=== PATIENT | male | born 1965 | race Caucasian/White ===

== ENCOUNTER → 2016-11-18 | Outpatient (CLI) | payer MEDICARE ==
--- NOTE | 2016-11-18 13:39 | XR ---
EXAMINATION TYPE: XR chest 2V DATE OF EXAM: 11/18/2016 1:31 PM COMPARISON: NONE HISTORY: Shortness of breath TECHNIQUE: Frontal and lateral views of the chest are obtained. FINDINGS: Scattered senescent parenchymal changes noted. Hyperinflation compatible with COPD. No evidence for infiltrate. No evidence for atelectasis. Heart size is stable. Mediastinal structures are stable and grossly unremarkable. No evidence for hilar prominence. Degenerative changes dorsal spine. IMPRESSION: 1. No evidence for acute pulmonary disease.
== END | disposition home or self-care (01) ==
LOC: RADXRMAIN 13:20
PROVIDERS: ATTEND Family Medicine
DX: R06.2 Wheezing (principal)
CPT/HCPCS: 71020

== ENCOUNTER → 2017-01-16 | Outpatient (CLI) | payer MEDICARE ==
[2017-01-16 14:23] LABS: Anion Gap 14 mmol/L; Blood Urea Nitrogen 14 mg/dL (9-20); CH 31.6; CHCM 34.5; Carbon Dioxide 25 mmol/L (22-30); Chloride 103 mmol/L (98-107); HCT 49.1 % (39.0-53.0); HDW 2.67; HGB 16.5 gm/dL (13.0-17.5); MCH 30.9 pg (25.0-35.0); MCHC 33.6 g/dL (31.0-37.0); MCV 92.1 fL (80.0-100.0); Mean Platelet Volume 7.6; Non-African American GFR(MDRD) >60 (>60 ml/min/1.73 sqM); Potassium 4.3 mmol/L (3.5-5.1); RBC 5.33 m/uL (4.30-5.90); RDW 12.6 % (11.5-15.5); Sodium 142 mmol/L (137-145); WBC 6.7 k/uL (3.8-10.6)
== END | disposition home or self-care (01) ==
LOC: LABWHC1 13:46
PROVIDERS: ATTEND Internal Medicine Interventional Cardiology
DX: Z01.812 Encounter for preprocedural laboratory examination (principal); R07.9 Chest pain, unspecified
CPT/HCPCS: 80051; 82565; 84520; 85027

== ENCOUNTER 2017-01-20 06:35 | Day surgery (SDC) | payer MEDICARE ==
[2017-01-17 14:26] VITALS: BMI 30.8
[2017-01-20] MEDS ORDERED: ALPRAZolam 0.5 MG TAB PO PRN (06:53)
[2017-01-20] MEDS ORDERED: SODIUM CHLORIDE 0.9% 1,000 ML in EMPTY BAG 1 BAG IV ONE (06:53)
[2017-01-20] MEDS ORDERED: ALPRAZolam 0.25 MG TAB PO PRN (06:53)
[2017-01-20] MEDS ORDERED: NITROGLYCERIN SL TABS 0.4 MG TAB SUBLINGUAL PRN (06:53)
[2017-01-20] MEDS ORDERED: ASPIRIN 325 MG TAB PO STA (06:54)
[2017-01-20] MEDS ORDERED: ATORVASTATIN 80 MG TAB PO STA (06:54)
[2017-01-20 07:18] VITALS: PULSE 75; TEMP 97.9
[2017-01-20] MEDS ORDERED: LIDOCAINE 2% INJ 20 MG/ML (20 ML MDV) ONE (07:28)
[2017-01-20] MEDS ORDERED: VERAPAMIL 2.5 MG/ML 2 ML AMP ONE (07:28)
[2017-01-20] MEDS ORDERED: SODIUM CHLORIDE 0.9% (PF) 10 ML VIAL ONE (07:28)
[2017-01-20] MEDS ORDERED: SODIUM CHLORIDE 0.9% 1,000 ML IV ONE (07:30)
[2017-01-20] MEDS ORDERED: HEPARIN SODIUM 1,000 UNIT/ML VIAL ONE (07:48)
[2017-01-20] MEDS ORDERED: MIDAZOLAM 2 MG/2 ML VIAL ONE (07:49)
[2017-01-20] MEDS ORDERED: MIDAZOLAM 2 MG/2 ML VIAL IVP ONE (07:50)
[2017-01-20] MEDS ORDERED: LIDOCAINE 2% INJ 20 MG/ML SQ ONE (07:52)
[2017-01-20] MEDS ORDERED: VERAPAMIL SYRINGE (5 MG/10 ML) INTRAARTER ONE ×2 (07:55→08:06)
[2017-01-20] MEDS ORDERED: fentaNYL (PF) 50 MCG/ML 2 ML AMP ONE (07:55)
[2017-01-20] MEDS ORDERED: fentaNYL (PF) 50 MCG/ML 2 ML AMP IV ONE (07:58)
[2017-01-20] MEDS ORDERED: HEPARIN SODIUM 1,000 UNIT/ML VIAL IV ONE (07:58)
[2017-01-20] MEDS ORDERED: IOHEXOL 350 MG/ML 100 ML BOTTLE INJ ONE (08:07)
[2017-01-20] MEDS ORDERED: RX INFO: IV CONTRAST WAS GIVEN 1 EACH MISC MISCELLANE PRN (08:11)
[2017-01-20] MEDS ORDERED: SODIUM CHLORIDE 0.9% 1,000 ML IV SCH (08:15)
[2017-01-20 12:44] VITALS: RESP 18
[2017-01-20 13:15] VITALS: BP 120/63
--- NOTE | 2017-01-20 16:31 | LTR ---
January 20, 2017 RE: Lul Mcintyre Dear Dr. Mitchell, Mr. Lul Mcintyre underwent a heart catheterization which showed normal coronaries with a normal left ventricular systolic function. He has no evidence of coronary artery disease. I will continue following up with him. No need for any intervention at this point. Thank you for allowing me to participate in his care. Please do not hesitate if you have any questions or concerns. Sincerely, CANDIDA KOCH MD
--- NOTE | 2017-01-20 16:37 | CC ---
DATE OF SERVICE: 01/20/2017 PERFORMING PHYSICIAN: Dimitris Sylvester M.D., [employer]. PROCEDURE PERFORMED: 1. Selective right and left coronary angiogram. 2. Left heart catheterization. 3. Left ventriculography. INDICATION: This is a pleasant 51-year-old gentleman with a past medical history significant for hypertension and dyslipidemia, continues to have intermittent episodes of chest discomfort concerning for angina. He was brought today to undergo a heart catheterization. APPROACH: Right radial artery. COMPLICATIONS: None. LEVEL OF SEDATION: Moderate with sedation length of about 30 minutes. PROCEDURE DESCRIPTION: After obtaining informed consent, the patient was brought to the cardiac track laborer. The right radial artery was cannulated using micropuncture technique. The micropuncture wire passed easily, then I placed 6 [place] sheath in the right radial artery. Subsequently, I did selective right and left coronary angiogram using JR4 and JL 3.5 catheters. I used 5 [place] system. After that, I did left heart catheterization and LV gram using 5 [place] pigtail catheter. Also the detail was 5 [place] system. The procedure was completed without any complication. SELECTIVE CORONARY ANGIOGRAM: 1. The right coronary artery is a large-caliber vessel and it is a codominant vessel. The right coronary artery is angiographically normal. In the midportion gives rise into medium size acute marginal branch. Distally becomes small caliber vessel and bifurcates into PDA and PLV branches; both are angiographically normal. 2. Left main is angiographically normal. It bifurcates into the left circumflex and left anterior descending artery. 3. Left circumflex is a large-caliber vessel and it is a codominant vessel. The proximal left circumflex is angiographically normal and gives rise to the first OM, which is a large-caliber vessel, seems to be angiographically normally. The mid left circumflex is normally. The left circumflex distally, is normal and bifurcates into PDA and PLV branches; both are angiographically normal. 4. Left anterior descending artery; The proximal LAD is angiographically normal and gives rise to the first diagonal branch, which is a large-caliber vessel with mild disease in the ostial. The mid LAD is tortuous but angiographically normally. The LAD distally is normal. HEMODYNAMICS: The left ventricular end-diastolic pressure was 12 mmHg. No gradient was identified across the aortic valve. Left ventriculography was performed in the GALVAN projection and using a power injection. The left ventricular systolic function is normal with an ejection fraction of 55% to 60% and normal wall motion. CONCLUSION: 1. Codominant right and left coronary system. 2. Normal coronary angiogram. 3. Normal left ventricular end-diastolic pressure. 4. Normal left ventricular systolic function. POSTPROCEDURE MANAGEMENT: 1. Medical treatment. 2. Follow up with the patient.
== END 2017-01-20 13:15 | disposition home or self-care (01) ==
LOC: CATHCVL 06:35
PROVIDERS: ATTEND Internal Medicine Interventional Cardiology
DX: R07.89 Other chest pain (principal); I20.0 Unstable angina; I10 Essential (primary) hypertension; E78.5 Hyperlipidemia, unspecified; E78.00 Pure hypercholesterolemia, unspecified; Z79.899 Other long term (current) drug therapy
CPT/HCPCS: 93458; 99152; C1894; J2001; J2250; Q9967; J3010; J1644

== ENCOUNTER → 2019-12-09 | Outpatient (CLI) | payer MEDICARE ==
[2019-12-09 10:15] LABS: HCT 50.2 % (39.0-53.0); HGB 16.5 gm/dL (13.0-17.5); MCH 30.5 pg (25.0-35.0); MCHC 32.8 g/dL (31.0-37.0); MCV 92.9 fL (80.0-100.0); Mean Platelet Volume 8.1; Platelet Count 230 k/uL (150-450); RDW 12.8 % (11.5-15.5); WBC 5.7 k/uL (3.8-10.6)
[2019-12-09 17:08] LABS: Albumin 4.7 g/dL (3.80-4.90); Albumin/Globulin Ratio 2.35 (1.60-3.17); Bilirubin, Conjugated 0.4 mg/dL (0.20-0.40); Bilirubin,Unconjugated 0.7 mg/dL; Chol/HDL Ratio 3.83; LDL Cholesterol,Calculated 53.4 mg/dL (0.0-131.0); Total Bilirubin 1.1 mg/dL (0.2-1.2); Total Protein 6.7 g/dL (6.2-8.2); VLDL Calculation 28.6 mg/dL (5.00-40.00)
== END | disposition home or self-care (01) ==
LOC: LABWHC1 09:34
PROVIDERS: ATTEND Urology
DX: E29.1 Testicular hypofunction (principal)
CPT/HCPCS: 36415; 80061; 80076; 84153; 85027

== ENCOUNTER → 2020-11-17 | Outpatient (CLI) | payer MEDICARE ==
[2020-11-17 07:37] LABS: HCT 47.8 % (39.0-53.0); HGB 16.8 gm/dL (13.0-17.5); MCHC 35.2 g/dL (31.0-37.0); Platelet Count 229 k/uL (150-450); RBC 5.25 m/uL (4.30-5.90); RDW 12.4 % (11.5-15.5); WBC 4.6 k/uL (3.8-10.6)
[2020-11-17 12:02] LABS: Albumin 4.8 g/dL (3.80-4.90); Albumin/Globulin Ratio 2.09 (1.60-3.17); Bilirubin, Conjugated 0.3 mg/dL (0.20-0.40); Bilirubin,Unconjugated 0.7 mg/dL; Chol/HDL Ratio 3.78; Globulin 2.3 g/dL (1.6-3.3); LDL Cholesterol,Calculated 82.8 mg/dL (0.0-131.0); Total Protein 7.1 g/dL (6.2-8.2); VLDL Calculation 31.2 mg/dL (5.00-40.00)
[2020-11-17 12:09] LABS: Prostate Specific Antigen 1.9 ng/mL (0.0-3.5)
== END | disposition home or self-care (01) ==
LOC: LABWHC1 07:03
PROVIDERS: ATTEND Urology
DX: E29.1 Testicular hypofunction (principal); R35.1 Nocturia
CPT/HCPCS: 36415; 80061; 80076; 84153; 85027